=== PATIENT | male | born 1980 | race African-American/Black ===

== ENCOUNTER 2019-12-17 01:42 | Emergency (ER) | payer MEDICAID, OTHER ==
[~2019-12-17] VITALS: Ht 177.8 cm; Wt 113.4 kg
[2019-12-17 03:28] LABS: Basophils # (auto) 0.1 10 ^3/uL (0-0.2); Basophils % (auto) 1.1 % (0.0-2.0); Eosinophils # (auto) 0.3 10 ^3/uL (0-0.8); Eosinophils % (auto) 3.6 % (0.0-7.0); Hematocrit 44.3 % (41.0-53.0); Hemoglobin 15.4 g/dL (13.5-17.5); Lymphocytes # (auto) 2.2 10 ^3/uL (0.4-5.4); Lymphocytes % (auto) 28.3 % (10.0-50.0); Mean Corpuscular Hemoglobin 30.6 pg (28.0-32.0); Mean Corpuscular Hgb Conc. 34.8 g/dL (32.0-36.0); Mean Corpuscular Volume 87.9 fL (80.0-100.0); Monocytes # (auto) 0.6 10 ^3/uL (0-1.3); Monocytes % (auto) 8.2 % (0.0-12.0); Neutrophils # (auto) 4.7 10 ^3/uL (1.6-8.6); Neutrophils % (auto) 58.8 % (37.0-80.0); Nucleated Red Blood Cells % 0.1 %; Platelet Count (auto) 182 10^3/uL (140-450); Red Blood Cells 5.03 10^6/uL (4.5-5.90); Red Cell Distribution Width 13.9 % (11.8-14.3); White Blood Cell 7.9 10^3/uL (4.4-10.8)
[2019-12-17 03:46] LABS: INR 0.98 (0.9-1.15); Partial Thromboplastin Time 27.6 sec (23.0-31.2)
[2019-12-17 03:49] LABS: Chloride 108 mmol/L (98-107); Potassium 3.2 mmol/L (3.5-5.1); Sodium 138 mmol/L (136-145)
[2019-12-17 04:00] LABS: Alanine Aminotransferase 37 U/L (16-61); Albumin 3.6 g/dL (3.4-5.0); Alkaline Phosphatase 113 U/L (45-117); Anion Gap 6 (5-15); Aspartate Aminotransferase 14 U/L (15-37); BUN/Creatinine Ratio 8.7; Bilirubin, Total 0.5 mg/dL (0.2-1.0); Blood Urea Nitrogen 9 mg/dL (7-18); Calcium 8.4 mg/dL (8.5-10.1); Carbon Dioxide 24 mmol/L (21-32); GFR African American 103 mL/min; GFR Non-African American 85 mL/min; Glucose 192 mg/dL (74-106); Magnesium 2.4 mg/dL (1.6-2.6); Total Protein 7.3 g/dL (6.4-8.2)
[2019-12-17 04:17] VITALS: BP 139/91
[2019-12-17] MEDS ORDERED: FAMOTIDINE 20 MG TAB PO ONE (05:00)
[2019-12-17 05:37] VITALS: BP 146/96
== END 2019-12-17 05:50 | disposition home or self-care (01) ==
LOC: EDBD 01:42 → ER 01:47
DX: R07.89 Other chest pain (principal); F10.129 Alcohol abuse with intoxication, unspecified; K29.20 Alcoholic gastritis without bleeding; J44.1 Chronic obstructive pulmonary disease with (acute) exacerbation; I10 Essential (primary) hypertension; E11.9 Type 2 diabetes mellitus without complications; E78.5 Hyperlipidemia, unspecified; F17.210 Nicotine dependence, cigarettes, uncomplicated
CPT/HCPCS: 36415; 36600; 71045; 80053; 82805; 83735; 83880; 84484; 85025; 85610; 85730; 93005; 94660